=== PATIENT | female | born 1980 | race Caucasian/White ===

== ENCOUNTER → 2018-02-27 | Outpatient (CLI) | payer OTHER ==
[~2018-02-27] MED LIST: ADVAIR IH; ALBUTEROL0.09 MG/A1 IH; ALLEGRA60 MG PO; BCP TD; FLEXERIL5 MG PO; IBU800 M1 PO; IRON PILL; LEVAQUIN 5500 MG/TAB PO; LEVOTHYROXINE PO; LORTAB 5/500 501 TAB PO; MEDROL 4MG DOSPA4 MG PO; MOTRIN 800800 MG/TAB PO; NORCO 325 MG-51 TAB PO; SINGULAIR; VICODIN 5/5001 UDTAB PO; VOLTAREN-XR100 MG; XOPENEX 1.1.25 MG/3 IH; ZYRTEC 10MG10 MG PO; [UNRECOGNIZED DRUG - SUPPLY]
== END ==
LOC: COL.RAD 09:56
DX: Z02.71 Encounter for disability determination (principal)

== ENCOUNTER 2018-11-12 11:25 | Emergency (ER) | payer OTHER ==
[~2018-11-12] VITALS: Ht 172.7 cm; Wt 185.9 kg
[2018-11-12 11:29] VITALS: BP 150/85; TEMP 99.1
[2018-11-12 13:17] VITALS: PULSE 87
== END 2018-11-12 13:19 | disposition home or self-care (01) ==
LOC: COL.ER 11:25
DX: B09 Unspecified viral infection characterized by skin and mucous membrane lesions (principal)
CPT/HCPCS: J2930; J7030

== ENCOUNTER → 2019-03-29 | Outpatient (CLI) | payer OTHER ==
[2019-03-29 10:33] LABS: BASO # 0.1 (0.0-0.2); BASO % 0.4 % (0.0-2.0); EOS # 0.2 (0.0-0.7); EOS % 1.8 % (0-4.0); GRAN # 9.3 (1.4-6.5); GRAN % 71.7 % (42.2-75.2); HEMATOCRIT 41.8 % (37.0-47.0); HEMOGLOBIN 12.7 g/dl (12.5-16.0); LYMPH # 2.5 (1.2-3.4); LYMPH % 19.2 % (20.0-51.0); MEAN CELL VOLUME 80 fl (80.0-100.0); MEAN CORPUSCULAR HEMOGLOBIN 24 pg (27.0-31.0); MEAN CORPUSCULAR HGB CONC 30 g/dl (33.0-37.0); MEAN PLATELET VOLUME 10.1 fl (7.4-10.4); MONO # 0.8 (0.1-0.6); PLATELET COUNT 404 K/mm3 (130-400); REDCELL DISTRIBUTION WIDTH-CV 15.3 % (11.5-14.5)
[2019-03-29 10:57] LABS: ALBUMIN 3.9 gm/dL (3.5-5.0); BILIRUBIN,TOTAL 0.6 mg/dL (0.0-1.0); C-REACTIVE PROTEIN 3.9 mg/dL (0.0-0.9); CALCIUM 9.5 mg/dL (8.4-10.2); CREATININE, serum 0.8 (0.52-1.25); POTASSIUM 4.2 mmol/L (3.4-5.0); TOTAL PROTEIN 7.1 gm/dL (6.4-8.2)
[2019-03-29 22:58] LABS: RHEUMATOID FACTOR-SCREEN <15 IU/mL (0-29)
== END ==
LOC: COL.LAB 09:40
PROVIDERS: Student in an Organized Health Care Education/Training Program
DX: E11.9 Type 2 diabetes mellitus without complications (principal); E78.00 Pure hypercholesterolemia, unspecified; R05 Cough

== ENCOUNTER → 2019-03-29 | Outpatient (CLI) | payer OTHER ==
[2019-03-29 14:09] LABS: CHOLESTEROL RISK RATIO 3.5
== END ==
LOC: COL.RAD 09:36 → COL.LAB 09:36
PROVIDERS: Family Medicine
DX: E11.9 Type 2 diabetes mellitus without complications (principal); E78.00 Pure hypercholesterolemia, unspecified; R05 Cough

== ENCOUNTER → 2019-06-14 | Outpatient (CLI) | payer OTHER | LOC: DIA.ED 08:12 | DX: E11.9 Type 2 diabetes mellitus without complications (principal); E11.40 Type 2 diabetes mellitus with diabetic neuropathy, unspecified; E78.5 Hyperlipidemia, unspecified; I10 Essential (primary) hypertension; E66.9 Obesity, unspecified | CPT/HCPCS: G0108 ==

== ENCOUNTER → 2019-08-16 | Outpatient (CLI) | payer OTHER ==
[2019-08-16 12:16] LABS: BASO # 0.1 (0.0-0.2); BASO % 0.4 % (0.0-2.0); EOS # 0.3 (0.0-0.7); EOS % 2.4 % (0-4.0); GRAN # 8.3 (1.4-6.5); GRAN % 65.9 % (42.2-75.2); HEMATOCRIT 40.5 % (37.0-47.0); HEMOGLOBIN 12.4 g/dl (12.5-16.0); LYMPH # 3.1 (1.2-3.4); LYMPH % 24.4 % (20.0-51.0); MEAN CELL VOLUME 80 fl (80.0-100.0); MEAN CORPUSCULAR HEMOGLOBIN 25 pg (27.0-31.0); MEAN CORPUSCULAR HGB CONC 31 g/dl (33.0-37.0); MEAN PLATELET VOLUME 10.2 fl (7.4-10.4); MONO # 0.8 (0.1-0.6); MONO % 6.2 % (1.7-9.3); PLATELET COUNT 370 K/mm3 (130-400); RED BLOOD COUNT 5.06 M/mm3 (4.10-5.30); REDCELL DISTRIBUTION WIDTH-CV 15.3 % (11.5-14.5)
[2019-08-16 12:26] LABS: ALBUMIN 3.8 gm/dL (3.5-5.0); BILIRUBIN,TOTAL 0.5 mg/dL (0.0-1.0); CREATININE, serum 0.73 (0.52-1.25); POTASSIUM 3.9 mmol/L (3.4-5.0); TOTAL PROTEIN 6.7 gm/dL (6.4-8.2)
[2019-08-16 12:41] LABS: ERYTHROCYTE SEDIMENTATION RATE 16 mm/hr (0-20)
[2019-08-16 12:57] LABS: TSH w REFLEX 0.025 uIU/mL (0.465-4.680)
[2019-08-17 00:05] LABS: COMPLEMENT-C3 186 mg/dL (79-152); COMPLEMENT-C4 45 mg/dL (18-55)
[2019-08-18 07:50] LABS: ASPERGILLUS FUM ALLR IGE COUNT <0.35 kU/L (<0.35); BOX ELDER/MAPL ALLERGN IGE CNT <0.35 kU/L (<0.35); ELM ALLERGEN IGE COUNT <0.35 kU/L (<0.35)
[2019-08-18 07:51] LABS: ALTERNARIA TEN ALLERGN IGE CNT <0.35 kU/L (<0.35); BERMUDA GRASS ALLERGEN IGE CNT <0.35 kU/L (<0.35); CAT DANDER ALLERGEN IGE COUNT <0.35 kU/L (<0.35); CLADOSPORIUM ALLERGN IGE COUNT <0.35 kU/L (<0.35); COCKROACH ALLERGEN CLASS <0.35 kU/L (<0.35); COTTONWOOD ALLERGEN IGE COUNT <0.35 kU/L (<0.35); DOG DANDER ALLERGEN IGE COUNT <0.35 kU/L (<0.35); DUST MITES IGE (D.F.) COUNT <0.35 kU/L (<0.35); DUST MT D.P. ALLERGN IGE COUNT <0.35 kU/L (<0.35); FIREBUSH ALLERGEN IGE COUNT <0.35 kU/L (<0.35); OAK ALLERGEN IGE COUNT <0.35 kU/L (<0.35); ROUGH MRSH ELDR ALRG IGE COUNT <0.35 kU/L (<0.35); RUSSIAN THIS ALLERGN IGE COUNT <0.35 kU/L (<0.35); SHORT RAGWED ALLERGN IGE COUNT <0.35 kU/L (<0.35); WHEAT ALLERGEN IGE COUNT <0.35 kU/L (<0.35)
== END ==
LOC: COL.LAB 10:43
DX: E11.69 Type 2 diabetes mellitus with other specified complication (principal); E03.9 Hypothyroidism, unspecified; L50.9 Urticaria, unspecified

== ENCOUNTER → 2019-08-22 | Outpatient (CLI) | payer OTHER | LOC: COL.RAD 09:17 | DX: M65.9 Synovitis and tenosynovitis, unspecified (principal); M19.90 Unspecified osteoarthritis, unspecified site | CPT/HCPCS: A9585 ==

== ENCOUNTER 2019-09-30 21:41 | Emergency (ER) | payer OTHER ==
[~2019-09-30] VITALS: Ht 170.2 cm; Wt 175.0 kg
[2019-09-30 21:44] VITALS: BP 181/90; TEMP 98.5
[2019-09-30] MEDS ORDERED: PREDNISONE20 MG PO ×2 (22:17→23:18)
[2019-09-30] MEDS ORDERED: STARLIX PO (22:27)
[2019-09-30] MEDS ORDERED: PEPCID AC20 MG PO (22:28)
[2019-09-30] MEDS ORDERED: LYRICA 100MG C100 M1 PO (22:28)
[2019-09-30 23:22] VITALS: PULSE 75
== END 2019-09-30 23:22 | disposition home or self-care (01) ==
LOC: COL.ER 21:41
DX: T78.1XXA Other adverse food reactions, not elsewhere classified, initial encounter (principal); E11.9 Type 2 diabetes mellitus without complications; I10 Essential (primary) hypertension
CPT/HCPCS: J2405; J2930; J7030

== ENCOUNTER → 2021-05-07 | Outpatient (CLI) | payer OTHER ==
[~2021-05-07] MED LIST changes: +LYRICA 100MG C100 M1 PO; +PEPCID AC20 MG PO; +PREDNISONE20 MG PO; +STARLIX PO
== END ==
LOC: COL.RAD 11:30
DX: J32.9 Chronic sinusitis, unspecified (principal)

== ENCOUNTER 2021-09-17 15:00 | Outpatient (RCR) | payer OTHER | END 2021-11-13 | disposition home or self-care (01) | LOC: WSPT | DX: T14.8XXA Other injury of unspecified body region, initial encounter (principal) ==

== ENCOUNTER → 2021-12-11 | Outpatient (CLI) | payer OTHER | LOC: COL.RAD 14:14 | DX: M25.512 Pain in left shoulder (principal) ==

== ENCOUNTER → 2022-01-11 | Outpatient (CLI) | payer OTHER | LOC: COL.RAD 14:00 | DX: M47.814 Spondylosis without myelopathy or radiculopathy, thoracic region (principal) ==

== ENCOUNTER → 2022-02-01 | Outpatient (CLI) | payer OTHER | LOC: COL.RAD 07:39 | DX: M51.34 Other intervertebral disc degeneration, thoracic region (principal) ==

== ENCOUNTER 2022-03-12 08:45 | Outpatient (RCR) | payer OTHER | END 2022-03-13 | disposition home or self-care (01) | LOC: PT.GENESIS | DX: M25.519 Pain in unspecified shoulder (principal) ==

== ENCOUNTER 2022-04-05 11:00 | Outpatient (RCR) | payer OTHER | END 2022-04-13 | disposition home or self-care (01) | LOC: PT.GENESIS | DX: M25.519 Pain in unspecified shoulder (principal) ==

== ENCOUNTER → 2022-04-27 | Outpatient (CLI) | payer OTHER | LOC: COL.RAD 15:50 | DX: M51.36 Other intervertebral disc degeneration, lumbar region (principal); M51.34 Other intervertebral disc degeneration, thoracic region ==

== ENCOUNTER → 2022-04-27 | Outpatient (CLI) | payer OTHER | LOC: MHCPAIN 14:37 | DX: M25.512 Pain in left shoulder (principal); M54.50 Low back pain, unspecified; M79.2 Neuralgia and neuritis, unspecified; M54.6 Pain in thoracic spine; M54.2 Cervicalgia ==

== ENCOUNTER → 2022-05-13 | Outpatient (RCR) | payer OTHER | END | disposition still patient (30) | LOC: PT.GENESIS | DX: M25.519 Pain in unspecified shoulder (principal) ==

== ENCOUNTER → 2022-06-02 | Outpatient (CLI) | payer OTHER | LOC: COL.RAD 13:35 | DX: M51.17 Intervertebral disc disorders with radiculopathy, lumbosacral region (principal); M47.26 Other spondylosis with radiculopathy, lumbar region; M48.061 Spinal stenosis, lumbar region without neurogenic claudication ==

== ENCOUNTER → 2022-06-08 | Outpatient (CLI) | payer OTHER | LOC: MHCPAIN 15:19 | DX: M54.12 Radiculopathy, cervical region (principal); M48.02 Spinal stenosis, cervical region; M79.2 Neuralgia and neuritis, unspecified; M51.16 Intervertebral disc disorders with radiculopathy, lumbar region; M54.6 Pain in thoracic spine; M25.532 Pain in left wrist | CPT/HCPCS: G0463 ==

== ENCOUNTER 2022-06-09 14:45 | Outpatient (RCR) | payer OTHER | END 2022-06-13 | disposition home or self-care (01) | LOC: PT.GENESIS | DX: M25.519 Pain in unspecified shoulder (principal) ==

== ENCOUNTER 2022-07-30 01:59 | Emergency (ER) | payer OTHER ==
[~2022-07-30] VITALS: Ht 170.2 cm; Wt 186.4 kg
[2022-07-30] MEDS ORDERED: PREDNISONE20 MG PO (03:23)
[2022-07-30 03:41] VITALS: BP 154/78; PULSE 70
== END 2022-07-30 03:51 | disposition home or self-care (01) ==
LOC: COL.ER 01:59
DX: T78.40XA Allergy, unspecified, initial encounter (principal); Z91.040 Latex allergy status; Z28.310 Unvaccinated for COVID-19
CPT/HCPCS: J1200; J2405; J2930; J7030

== ENCOUNTER → 2022-12-09 | Outpatient (CLI) | payer OTHER | LOC: MHCPAIN 14:15 | DX: M17.12 Unilateral primary osteoarthritis, left knee (principal); M25.562 Pain in left knee | CPT/HCPCS: J3301 ==

== ENCOUNTER → 2023-01-03 | Outpatient (CLI) | payer OTHER | LOC: MHCPAIN 11:21 | DX: M54.12 Radiculopathy, cervical region (principal); M48.02 Spinal stenosis, cervical region; M79.2 Neuralgia and neuritis, unspecified; M17.12 Unilateral primary osteoarthritis, left knee; G56.03 Carpal tunnel syndrome, bilateral upper limbs; G56.21 Lesion of ulnar nerve, right upper limb | CPT/HCPCS: G0463 ==

== ENCOUNTER → 2023-03-02 | Outpatient (CLI) | payer OTHER | LOC: MHCPAIN 15:25 | DX: M54.12 Radiculopathy, cervical region (principal); M17.12 Unilateral primary osteoarthritis, left knee; M25.562 Pain in left knee; M48.02 Spinal stenosis, cervical region; Z98.890 Other specified postprocedural states; Z91.81 History of falling | CPT/HCPCS: G0463 ==

== ENCOUNTER 2023-03-08 16:00 | Outpatient (RCR) | payer OTHER | END 2023-03-13 | disposition home or self-care (01) | LOC: WSOT | DX: G56.02 Carpal tunnel syndrome, left upper limb (principal) ==

== ENCOUNTER → 2023-08-22 | Outpatient (CLI) | payer OTHER | LOC: MHCPAIN 13:32 | DX: M54.12 Radiculopathy, cervical region (principal); M48.02 Spinal stenosis, cervical region; M79.2 Neuralgia and neuritis, unspecified; M17.12 Unilateral primary osteoarthritis, left knee | CPT/HCPCS: G0463 ==

== ENCOUNTER 2023-11-21 09:10 | Day surgery (SDC) | payer OTHER ==
[~2023-11-21] VITALS: Ht 170.2 cm; Wt 192.6 kg
[~2023-11-21 09:10] MED LIST changes: +ALBUTEROL0.83 MG/ML IH; +PREDNISONE50 MG PO; +TESSALON P100 MG/CAP PO
[2023-11-21] MEDS ORDERED: XYZAL5 MG PO (09:36)
[2023-11-21 09:38] LABS: HEMATOCRIT 45.3 % (37.0-47.0); HEMOGLOBIN 14.5 g/dl (12.5-16.0); MEAN CELL VOLUME 84 fl (80.0-100.0); MEAN CORPUSCULAR HEMOGLOBIN 27 pg (27-31); MEAN CORPUSCULAR HGB CONC 32 g/dl (33.0-37.0); MEAN PLATELET VOLUME 10.6 fl (7.4-10.4); PLATELET COUNT 265 K/mm3 (130-400); RED BLOOD COUNT 5.39 M/mm3 (4.10-5.30); REDCELL DISTRIBUTION WIDTH-CV 15.2 % (11.5-14.5)
[2023-11-21] MEDS ORDERED: SINGULAIR 110 MG/TAB PO (09:38)
[2023-11-21] MEDS ORDERED: EUTHYROX175 MCG PO (09:38)
[2023-11-21] MEDS ORDERED: BENICAR5 MG PO (09:38)
[2023-11-21] MEDS ORDERED: MAGNESIUM200 MG (09:39)
[2023-11-21] MEDS ORDERED: NATURAL IRON65 MG (09:39)
[2023-11-21] MEDS ORDERED: OZEMPIC0.25 MG/02 (09:40)
[2023-11-21] MEDS ORDERED: LIPITOR 10MG10 MG PO (09:40)
[2023-11-21] MEDS ORDERED: VITAMIN D 400400 IU PO (09:40)
[2023-11-21] MEDS ORDERED: RT ADVAIR 228 DISKUS IH (09:42)
[2023-11-21] MEDS ORDERED: OZEMPIC1 MG/0.71 SQ (09:42)
[2023-11-21 09:43] VITALS: BP 152/81; PULSE 66; TEMP 98.1
[2023-11-21 09:50] LABS: INR 1.1 (0.8-3.0); PROTHROMBIN TIME 11.9 SECONDS (9.7-12.8)
[2023-11-21 09:55] LABS: CALCIUM 9.7 mg/dL (8.4-10.2); CREATININE, serum 0.83 mg/dL (0.57-1.11); POTASSIUM 4.5 mmol/L (3.5-4.5)
[2023-11-21 10:29] LABS: BAND 5 % (0-10); BASOPHIL 1 % (0-2); MYELOCYTE 2 % (0-0); NEUTROPHILS 69 % (42.0-75.2)
[2023-11-21 10:30] LABS: ANISOCYTOSIS 1+; EOSINOPHIL 4 % (0-4); LYMPHOCYTE 14 % (20.0-51.0); PLATELET ESTIMATE NORMAL (NORMAL)
[2023-11-21 11:45] VITALS: BP 107/69; BP 127/89; PULSE 67; PULSE 80
[2023-11-21 12:00] VITALS: BP 124/74; PULSE 63
[2023-11-21 12:15] VITALS: BP 110/83; PULSE 66
[2023-11-21 12:30] VITALS: BP 112/77; PULSE 66
[2023-11-21 12:45] VITALS: BP 119/70; PULSE 67
--- NOTE | 2023-11-21 13:11 | NUR ---
Pt ambulated to EU12 with a steady gait, scheduled for a IAN. Pt is accompnaied by their . EKG done. IV started by [facility], Left AC 20g. Labs drawn. Meds and HX reviewed with the pt. Consent for the procedure signed. Post procedure the pt recovered in EU12 for about an hr. Food and Drinks were offered, pt only wanted a water and pepsi. Did not want anything to eat at this time. After the recovery the pt was given discharge education and information. IV was dc'd and wrapped with coban. Pt exited the unit by wheelchair to husbands car.
== END 2023-11-21 12:56 | disposition home or self-care (01) ==
LOC: COL.CAR 09:10
PROVIDERS: Internal Medicine Cardiovascular Disease
DX: I37.0 Nonrheumatic pulmonary valve stenosis (principal); R01.1 Cardiac murmur, unspecified; E66.01 Morbid (severe) obesity due to excess calories; Z68.44 Body mass index [BMI] 60.0-69.9, adult
CPT/HCPCS: J2704; J7030

== ENCOUNTER → 2024-01-06 11:48 | Outpatient (CLI) | payer OTHER ==
[~2024-01-06] VITALS: Ht 170.2 cm; Wt 195.3 kg
[2024-01-06 08:37] VITALS: BP 135/70; PULSE 65; TEMP 97.1
--- NOTE | 2024-01-06 08:55 | NUR ---
Pt c/o pain at IV site. IV was inserted without issue, no swelling at site. Warm blanket placed over site to attempt to provide some relief for pt. Site continues to flush easily. Offer to replace site made mutiple times, pt declines.
[2024-01-06 10:30] VITALS: BP 161/100; PULSE 66
--- NOTE | 2024-01-06 10:44 | NUR ---
Pt returned to EU 14 post TTT. Pt alert, oriented. Reports feeling sligthly dizzy post procedure. She is able transfer self from wheelchair to bed. Snack offered, pt takes applesauce and diet soda. She is resting comfortably in bed. Call light in bed. at bedside.
[2024-01-06 10:45] VITALS: BP 107/77; PULSE 64
[2024-01-06 11:00] VITALS: BP 118/85; PULSE 65
--- NOTE | 2024-01-06 11:34 | NUR ---
DC instructions reviewed with pt and . Both express understanding. IV Dc'd, site wrapped with coban. Pt drank 2 cups of water, 1 soda, and had 2 applesauces during recovery period. Denies any further dizziness. She is steady on feet in room. She is assisted out by WC to 's car.
[~2024-01-06 11:48] MED LIST changes: +BENICAR5 MG PO; +CALCIUM/MAGNESI1 T18 PO; +FLONASE NASAL S16 GM NS; +HCTZ 25MG TAB25 MG PO; +LIPITOR20 MG PO; -LYRICA 100MG C100 M1 PO; +LYRICA 150MG C150 MG PO; +MAGNESIUM500 MG PO; +NATURAL IRON65 MG; +NEXIUM 20MG20 MG PO; +OZEMPIC0.25 MG/02; +OZEMPIC1 MG/0.71 SQ; +PROAIR HFA0.09 MG/AC IH; +RT ADVAIR 228 DISKUS IH; +SINGULAIR 110 MG/TAB PO; +SYNTHROID0.175 MG PO; +TOPROL XL 25MG25 MG PO; +TRIAMCINOLONE AC0.13 TOP; +VITAMIND3 5000 PO; +XYZAL5 MG PO
== END | disposition home or self-care (01) ==
LOC: COL.CAR 07:00
DX: R42 Dizziness and giddiness (principal); R00.2 Palpitations; R01.1 Cardiac murmur, unspecified; I10 Essential (primary) hypertension; E78.5 Hyperlipidemia, unspecified; Z77.22 Contact with and (suspected) exposure to environmental tobacco smoke (acute) (chronic)

== ENCOUNTER → 2024-01-23 | Outpatient (CLI) | payer OTHER ==
[~2024-01-23] MED LIST changes: +Iohexol 300 - 10 ML VIAL ONE; +Lidocaine PF 2% (20 MG/ML) 2 ML VIAL ONE
== END ==
LOC: MHCPAIN 09-05 14:29
DX: M54.12 Radiculopathy, cervical region (principal)
CPT/HCPCS: J1100; Q9967

== ENCOUNTER → 2024-03-05 | Outpatient (CLI) | payer OTHER ==
[~2024-03-05] MED LIST changes: -Iohexol 300 - 10 ML VIAL ONE; -Lidocaine PF 2% (20 MG/ML) 2 ML VIAL ONE
== END ==
LOC: MHCPAIN 14:35
DX: M54.12 Radiculopathy, cervical region (principal); M48.02 Spinal stenosis, cervical region; M17.12 Unilateral primary osteoarthritis, left knee
CPT/HCPCS: G0463

== ENCOUNTER → 2024-03-12 | Outpatient (CLI) | payer OTHER ==
[~2024-03-12] MED LIST changes: +Lidocaine PF 1% (10 MG/ML) 5 ML VIAL ONE; +Triamcinolone 40 MG/ML 1 ML VIAL ONE
== END ==
LOC: MHCPAIN 13:14
DX: M17.12 Unilateral primary osteoarthritis, left knee (principal); M25.562 Pain in left knee
CPT/HCPCS: J3301

== ENCOUNTER → 2024-04-30 | Outpatient (CLI) | payer OTHER ==
[~2024-04-30] MED LIST changes: -Lidocaine PF 1% (10 MG/ML) 5 ML VIAL ONE; -Triamcinolone 40 MG/ML 1 ML VIAL ONE
== END ==
LOC: MHCPAIN 10:42
DX: M54.12 Radiculopathy, cervical region (principal); M48.02 Spinal stenosis, cervical region
CPT/HCPCS: G0463

== ENCOUNTER → 2024-10-15 | Outpatient (CLI) | payer OTHER ==
[~2024-10-15] MED LIST changes: +Iohexol 300 - 10 ML VIAL ONE; +Lidocaine PF 2% (20 MG/ML) 2 ML VIAL ONE
== END ==
LOC: MHCPAIN 08:24
DX: M54.12 Radiculopathy, cervical region (principal)
CPT/HCPCS: J1100; Q9967